=== PATIENT | male | born 1995 | race Two or more races ===

== ENCOUNTER 2020-04-20 06:36 | Emergency (ER) | payer SELFPAY ==
[~2020-04-20] VITALS: Ht 185.4 cm; Wt 72.7 kg
[2020-04-20] MEDS ORDERED: ACETAMINOPHEN 500 MG TABLET PO ONE (08:30)
[2020-04-20] MEDS ORDERED: IBUPROFEN 600 MG TABLET PO ONE (08:30)
[2020-04-20] MEDS ORDERED: LIDOCAINE 2% VISCOUS 15 ML SOLUTION UDCUP PO ONE (08:30)
[2020-04-20 10:07] VITALS: BP 121/73
== END 2020-04-20 10:23 | disposition home or self-care (01) ==
LOC: EMS 06:36
DX: U07.1 COVID-19 (principal)
CPT/HCPCS: 99284; U0003; Z7502; Z7610

== ENCOUNTER 2020-05-21 21:12 | Emergency (ER) | payer MEDICAID, SELFPAY ==
[~2020-05-21] VITALS: Ht 180.3 cm; Wt 86.4 kg
[2020-05-21 23:57] LABS: RAPID GROUP A STREP NEGATIVE (NEGATIVE)
[2020-05-22] VITALS: BP 110/69
[2020-05-22] MEDS ORDERED: IBUPROFEN 600 MG TABLET PO ONE (00:15)
[2020-05-22] MEDS ORDERED: DEXAMETHASONE SOD PHOS 4 MG/ML 5 ML VIAL IM ONE (00:15)
== END 2020-05-22 00:49 | disposition home or self-care (01) ==
LOC: EMS 21:12
DX: J02.9 Acute pharyngitis, unspecified (principal); Z20.828 Contact with and (suspected) exposure to other viral communicable diseases
CPT/HCPCS: 87426; 87430; 96372; 99283; J1100

== ENCOUNTER 2020-05-29 20:02 | Emergency (ER) | payer MEDICAID ==
[~2020-05-29] VITALS: Ht 165.1 cm; Wt 68.2 kg
[2020-05-30] MEDS ORDERED: BENZOCAINE/MENTHOL LOZENGE PO ONE
[2020-05-30 00:54] VITALS: BP 124/80
== END 2020-05-30 01:48 | disposition home or self-care (01) ==
LOC: EMS 20:04
DX: R07.0 Pain in throat (principal); Z20.828 Contact with and (suspected) exposure to other viral communicable diseases
CPT/HCPCS: 87430; 99283; U0003